=== PATIENT | female | born 1990 | race Caucasian/White ===

== ENCOUNTER 2016-11-07 09:49 | Emergency (ER) | payer OTHER ==
[~2016-11-07] VITALS: Ht 167.6 cm; Wt 74.8 kg
[2016-11-07 10:31] LABS: BASO % 0.2 % (0.1-1.2); EOS % 0.7 % (0.7-5.8); GRAN # 2.8 10_X3_uL (1.6-6.1); GRAN % 63.8 % (34.0-71.1); HEMATOCRIT 33.9 % (34-45); HEMOGLOBIN 11.5 g/dL (11.2-15.7); LYMPH # 1.1 10_X3_uL (1.2-3.7); LYMPH % 25.3 % (19.3-51.7); MEAN CORPUSCULAR HEMOGLOBIN 30.8 pg (27.0-33.0); MEAN CORPUSCULAR HGB CONC 33.9 g/dL (32.0-36.0); MEAN CORPUSCULAR VOLUME 90.9 fL (79-95); MEAN PLATELET VOLUME 9.9 fl (7.5-11.5); MONO # 0.4 10_X3_uL (0.2-0.9); PLATELET COUNT 199 x10_3/uL (182-369); RED BLOOD COUNT 3.73 x10_6/uL (3.9-5.2); RED CELL DISTRIBUTION WIDTH 12.4 % (11.7-14.4); WHITE BLOOD COUNT 4.3 x10_3/uL (4.0-10.0)
[2016-11-07 10:41] LABS: BLOOD UREA NITROGEN 5 mg/dL (7-18); CALCIUM 9.1 mg/dL (8.7-10.7); CARBON DIOXIDE 23 mmol/L (21-32); CREATININE 0.6 mg/dL (0.6-1.3); GLUCOSE,RANDOM 114 mg/dL (70-99); POTASSIUM 3.1 mmol/L (3.5-5.1); SODIUM 139 mmol/L (136-145)
== END 2016-11-07 13:40 | disposition home or self-care (01) ==
LOC: ER 09:49
PROVIDERS: Internal Medicine
DX: L03.114 Cellulitis of left upper limb (principal); F17.210 Nicotine dependence, cigarettes, uncomplicated; F41.9 Anxiety disorder, unspecified; Z79.899 Other long term (current) drug therapy
CPT/HCPCS: 36415; 73130; 80048; 83605; 85025; 87040; 96365; 96366; 96375; 99070; 99283-25